=== PATIENT | female | born 1950 | race Caucasian/White ===

== ENCOUNTER → 2019-07-26 | Outpatient (CLI) | payer OTHER | LOC: GMAE 11:22 | PROVIDERS: ATTEND Family Medicine | DX: Z79.899 Other long term (current) drug therapy (principal); E78.2 Mixed hyperlipidemia ==

== ENCOUNTER → 2019-08-13 | Outpatient (CLI) | payer OTHER ==
--- NOTE | 2019-08-15 17:05 | MAM ---
EXAM DESCRIPTION: 3D Screening BILATERAL : Digital Mammography. CLINICAL HISTORY: 69 years Female ANNUAL SCREENING . No complaints. No personal or family history of breast cancer. Menarche 13. Childbirth. Postmenopausal 30+ years. HRT 5 or more years ago. Prior benign right breast biopsy. Lifetime risk of developing breast cancer (Tyrer-Cuzick model)(%): 7.6. COMPARISON: Bilateral screening 2-D digital mammography 08/09/2018. Also 08/08/2017. TECHNIQUE: Bilateral CC and MLO projection full-field images, digital tomosynthesis mammographic technique. Bilateral digital 2-D full-field MLO images. CAD not available for tomosynthesis or 2-D images. FINDINGS: The breast parenchymal density pattern is: Scattered areas of fibroglandular density. No skin thickening or nipple retraction. Bilateral skin moles. Right breast axillary lymph nodes. Bilateral solitary microcalcifications. Bilateral vascular calcifications. No new focal, stellate mass or density, focal asymmetry , and no suspicious microcalcifications bilaterally. Stable mammograms compared to prior study. Taking into account, differences in mammographic technique. IMPRESSION: Benign exam. BIRAD CATEGORY: 2 BENIGN FINDINGS. RECOMMENDATIONS: FOLLOW UP: Routine digital bilateral mammographic screening, one year interval from August 2019. Written communication explaining the IMPRESSION and follow-up, will be mailed to the patient and referring health care provider. According to the [employer], yearly mammograms are recommended starting at age 40 and continuing as long as a woman is in good health. Any breast change noted on a breast self-exam should be reported promptly to the patient's healthcare provider. Breast MRI is recommended for women with an approximately 20-25% or greater lifetime risk of breast cancer, including women with a strong family history of breast or ovarian cancer and women who have been treated for Hodgkin's disease. A negative mammographic report should not delay tissue diagnosis in patients with significant clinical history or physical findings. Extremely dense breast tissue limits the sensitivity of digital mammography. Electronically signed by: Rob Jackson MD 08/15/2019 5:04 PM CDT
== END ==
LOC: MAMMO 08:08
PROVIDERS: ATTEND Family Medicine
DX: Z12.31 Encounter for screening mammogram for malignant neoplasm of breast (principal)

== ENCOUNTER → 2020-06-04 | Outpatient (CLI) | payer OTHER ==
--- NOTE | 2020-06-04 10:11 | CT ---
Study: CT Chest. Indication: Orthopnea Technique: CT imaging of the chest obtained without intravenous administration of contrast. This exam was performed according to our departmental dose-optimization program, which includes automated exposure control, adjustment of the mA and/or kV according to patient size and/or use of iterative reconstruction technique. Comparison: None. Findings: Small volume of pericardial fluid tracking about the aortic root without aneurysmal dilatation. Heart size upper limits of normal. Mild atherosclerosis coronary arteries. No pathologically enlarged lymphadenopathy. Tiny hiatal hernia. Degenerative changes of the spine noted. No consolidation, pleural effusion, or pneumothorax. Impression: Small-volume pericardial fluid about the aortic root, nonspecific. Further characterization with echocardiogram recommended. Heart size upper limits of normal. Coronary artery sclerosis. Clear lungs. Small hiatal hernia. Electronically signed by: Herman Manzo MD 06/04/2020 10:10 AM CDT
== END ==
LOC: CT 10:20
PROVIDERS: ATTEND Family Medicine
DX: R06.01 Orthopnea (principal); I31.3 Pericardial effusion (noninflammatory); I25.10 Atherosclerotic heart disease of native coronary artery without angina pectoris; K44.9 Diaphragmatic hernia without obstruction or gangrene

== ENCOUNTER → 2020-06-18 | Outpatient (CLI) | payer OTHER ==
--- NOTE | 2020-06-18 18:24 | CT ---
TECHNIQUE: Spiral CT examination of the paranasal sinuses. Multiplanar reformats provided. This exam was performed according to our departmental dose-optimization program, which includes automated exposure control, adjustment of the mA and/or kV according to patient size and/or use of iterative reconstruction technique. CLINICAL HISTORY PROVIDED: COUGH DYSPHONIA COMPARISON: None available. FINDINGS: Right: Maxillary: Trace mucosal disease inferiorly. Ethmoid: Unremarkable. Sphenoid: Unremarkable. Frontal: Unremarkable. Infundibulum: Occluded. Middle Meatus: Unremarkable. Left: Maxillary: Trace mucosal disease inferiorly. Ethmoid: Unremarkable. Sphenoid: Small air-fluid level in the left sphenoid sinus. Frontal: Unremarkable. Infundibulum: Unremarkable. Middle Meatus: Unremarkable. Nasal Passage: Septal Deviation: 2 mm rightward nasal septal deviation. Septal Spur: None of significance. Mucosa: Mild mucosal hypertrophy. Jurgen Bullosa: 1 cm left jurgen bullosa. Notable Anatomic Findings: None of significance. Visible Brain and Orbits: Unremarkable. Incidental Findings: None of significance. IMPRESSION: Scattered paranasal sinus disease with air-fluid level in the sphenoid sinus which may indicate acute sinusitis. Electronically signed by: Sabino Davis MD 06/18/2020 6:22 PM CDT
== END ==
LOC: CT 08:04
PROVIDERS: ATTEND Otolaryngology
DX: R05 Cough (principal); R49.0 Dysphonia; J45.909 Unspecified asthma, uncomplicated; J34.9 Unspecified disorder of nose and nasal sinuses

== ENCOUNTER → 2020-08-05 | Outpatient (CLI) | payer OTHER | LOC: GMAE 10:31 | PROVIDERS: ATTEND Family Medicine | DX: Z79.899 Other long term (current) drug therapy (principal); E78.2 Mixed hyperlipidemia ==

== ENCOUNTER → 2020-08-14 | Outpatient (CLI) | payer OTHER ==
--- NOTE | 2020-08-15 16:42 | MAM ---
EXAM DESCRIPTION: 3D Screening BILATERAL : Digital Mammography. CLINICAL HISTORY: 70 years Female SCREEN . No complaints and no family history breast cancer. Menarche age 13. Childbirth age 23. Menopause age 32. HRT 5 or more years ago. Benign right breast biopsy and benign left breast cyst aspiration.. Lifetime risk of developing breast cancer (Tyrer-Cuzick model)(%): 5.7. COMPARISON: Bilateral screening digital breast tomosynthesis August 2019 and bilateral screening digital mammography August 2018. TECHNIQUE: Bilateral CC and MLO projection full-field images, digital tomosynthesis mammographic technique. Bilateral digital 2-D full-field MLO images. CAD available for 2-D images. FINDINGS: The breast parenchymal density pattern is: Scattered areas of fibroglandular density. No skin thickening or nipple retraction. Solitary microcalcifications and coarse calcifications. Axillary lymph nodes. Calcifications associated with a soft tissue density most likely a degenerating fibroadenoma stable. Vascular calcifications. Stable circumscribed mass densities most likely intramammary lymph nodes. No new focal, stellate mass or density, focal asymmetry , and no suspicious microcalcifications bilaterally. Stable mammograms compared to prior study. IMPRESSION: Benign exam. BIRAD CATEGORY: 2 BENIGN FINDINGS. RECOMMENDATIONS: FOLLOW UP: Routine digital bilateral mammographic screening, one year interval from August 2020. Written communication explaining the IMPRESSION and follow-up, will be mailed to the patient and referring health care provider. According to the [employer], yearly mammograms are recommended starting at age 40 and continuing as long as a woman is in good health. Any breast change noted on a breast self-exam should be reported promptly to the patient's healthcare provider. Breast MRI is recommended for women with an approximately 20-25% or greater lifetime risk of breast cancer, including women with a strong family history of breast or ovarian cancer and women who have been treated for Hodgkin's disease. A negative mammographic report should not delay tissue diagnosis in patients with significant clinical history or physical findings. Extremely dense breast tissue limits the sensitivity of digital mammography. Electronically signed by: Rob Jackson MD 08/15/2020 4:40 PM CDT
== END ==
LOC: MAMMO 08:30
PROVIDERS: ATTEND Family Medicine
DX: Z12.31 Encounter for screening mammogram for malignant neoplasm of breast (principal)

== ENCOUNTER → 2020-08-28 | Outpatient (CLI) | payer OTHER | LOC: LAB.O 14:27 | PROVIDERS: ATTEND Internal Medicine Infectious Disease | DX: D72.10 Eosinophilia, unspecified (principal) ==